=== PATIENT | female | born 1945 | race Caucasian/White ===

== ENCOUNTER → 2020-05-11 13:31 | Outpatient (CLI) | payer MEDICARE, OTHER, SELFPAY ==
[2020-05-11 14:04] LABS: COVID19 -Nasal RAPID Negative (Negative)
== END ==
PROVIDERS: Visit Provider Student in an Organized Health Care Education/Training Program
DX: Z11.59 Encounter for screening for other viral diseases (principal)
CPT/HCPCS: 87635

== ENCOUNTER 2020-05-17 07:50 | Day surgery (SDC) | payer MEDICARE, OTHER, SELFPAY ==
[2020-05-17 08:31] LABS: COVID19 -Nasal RAPID Negative (Negative)
[2020-05-17 08:34] VITALS: BP 113/63; PULSE 60; RESP 14; TEMP 36.9; O2SAT 97; BMI 20.4
[2020-05-17] MEDS: PROPARACAINE 0.5% OPHTH SOL 2 DROPS EYE-OP (08:44)
[2020-05-17] MEDS: CATARACT EYE COMPOUND (10 DROPS/SYRINGE) 3 DROPS EYE-OP (08:47)
--- NOTE | 2020-05-17 09:33 | PM.PREOP ---
Pre-operative Note Interval Note History & Physical reviewed/Exam performed by Physician: Yes Changes to H&P: No
--- NOTE | 2020-05-17 09:34 | PM.OP.1 ---
Operative Date/Time/Diagnoses Pre-op diagnosis: Nuclear Cataract Left eye Post-op diagnosis: same Procedure & Clinicians Same procedure as scheduled: Yes Surgeon: Vj Carrasquillo Anesthesia Type: MAC +/- and Sedation Operative Notes Procedure in detail: Patient brought to the operating suite. Tetracaine drops placed in the left eye. Patient was prepped and draped in sterile manner. Wire lid speculum was placed in the eye. Betadine drops were placed on the eye. This was irrigated. Lidocaine jelly was placed on the eye. A paracentesis port was created with a side-port blade. 0.1 mL 1% preservative free lidocaine was injected into the anterior chamber. The anterior chamber was deepened with viscoelastic. 2.6 mm keratome was used to create a temporal clear corneal incision. Cystotome and Utrata forceps were used to create continuous tear capsulorrhexis. Balanced salt solution was used to hydro dissect the nucleus. The phacoemulsification handpiece was inserted and the nucleus was removed using the stop and chop technique. The iris was floppy and miotic. The irrigation aspiration handpiece was inserted and the remaining cortex was removed. Anterior chamber was deepened with viscoelastic. An Farah ZCB00 intraocular lens with a power of 23.0 was injected into the capsular bag. Irrigation aspiration handpiece was inserted and the remaining viscoelastic was removed. Incision was hydrated with balanced salt solution and found to be leak free with pressure with Weck-Earnestine sponges. 0.1 mL Vigamox injected anterior chamber. 0.3 mL Kenalog 10 mg was injected subconjunctivally. Lid speculum was removed. The patient left the operating room in excellent condition. Complications: none Post-operative Condition: stable Disposition: same day surgery
[2020-05-17] MEDS: PHENYLEPHRINE/LIDOCAINE VIAL (OR) 0.2 ML EYE-OP (09:49)
[2020-05-17] MEDS: MOXIFLOXACIN INJ 5 MG/ML VIAL EYE-OP (09:49)
[2020-05-17] MEDS: TRIAMCINOLONE 50 MG/5 ML VIAL INJ (09:49)
[2020-05-17] MEDS: BALANCED SALT IRRIG SOLN NO.2 500 ML, EPINEPHrine 1 MG IRR (09:50)
[2020-05-17] MEDS: CHONDROIDTIN/SOD HYALURONATE 1.05 ML SYRINGE INTRAOCULA (09:50)
[2020-05-17] MEDS: TETRACAINE 0.5% OPHTH DROPS 4 ML 2 DROPS EYE-OP (09:50)
[2020-05-17] MEDS: LIDOCAINE JELLY 2% 5 ML 1 APPLIC TOP (09:50)
[2020-05-17 10:00] VITALS: BP 123/62; PULSE 60; RESP 14; TEMP 36.6; O2SAT 97
== END 2020-05-17 10:12 | disposition home or self-care (01) ==
PROVIDERS: PCP Family Medicine; Referring Provider Family Medicine; Visit Provider Ophthalmology
PROC: (CPT 66984; principal; 2020-05-17 09:45)
DX: H25.12 Age-related nuclear cataract, left eye (principal); I25.10 Atherosclerotic heart disease of native coronary artery without angina pectoris; I10 Essential (primary) hypertension; E78.5 Hyperlipidemia, unspecified; J45.909 Unspecified asthma, uncomplicated
CPT/HCPCS: 66984; 36415; 87635; J0171; J2250; J3010; J3301

== ENCOUNTER → 2020-07-02 09:47 | Outpatient (CLI) | payer MEDICARE, OTHER, SELFPAY ==
[2020-07-02 10:20] LABS: COVID19 -Nasal RAPID Negative (Negative)
== END ==
PROVIDERS: PCP Family Medicine; Visit Provider Physician Assistant
DX: Z20.822 Contact with and (suspected) exposure to COVID-19 (principal)
CPT/HCPCS: 87635; C9803

== ENCOUNTER 2020-07-05 08:32 | Day surgery (SDC) | payer MEDICARE, OTHER, SELFPAY ==
[2020-07-05] MEDS: PROPARACAINE 0.5% OPHTH SOL 2 DROPS EYE-OP (09:34)
[2020-07-05] MEDS: CATARACT EYE COMPOUND (10 DROPS/SYRINGE) 3 DROPS EYE-OP (09:41)
[2020-07-05 09:42] VITALS: BP 126/71; PULSE 61; RESP 12; TEMP 36.4; O2SAT 99; BMI 19.8
--- NOTE | 2020-07-05 10:20 | PM.PREOP ---
Pre-operative Note Interval Note History & Physical reviewed/Exam performed by Physician: Yes Changes to H&P: No
--- NOTE | 2020-07-05 10:21 | PM.OP.1 ---
Operative Date/Time/Diagnoses Pre-op diagnosis: Nuclear cataract right eye Procedure & Clinicians Procedure: Cataract Surgery Same procedure as scheduled: Yes Surgeon: Vj Carrasquillo Anesthesia Type: MAC +/- and Sedation Operative Notes Procedure in detail: Patient brought to the operating suite. Tetracaine drops placed in the right eye. Patient was prepped and draped in sterile manner. Wire lid speculum was placed in the eye. Betadine drops were placed on the eye. This was irrigated. Lidocaine jelly was placed on the eye. A paracentesis port was created with a side-port blade. 0.1 mL 1% preservative free lidocaine was injected into the anterior chamber. The anterior chamber was deepened with viscoelastic. 2.6 mm keratome was used to create a temporal clear corneal incision. Cystotome and Utrata forceps were used to create continuous tear capsulorrhexis. Balanced salt solution was used to hydro dissect the nucleus. The phacoemulsification handpiece was inserted and the nucleus was removed using the stop and chop technique. The irrigation aspiration handpiece was inserted and the remaining cortex was removed. Anterior chamber was deepened with viscoelastic. An Farah ZCB00 intraocular lens with a power of 22.5 was injected into the capsular bag. Irrigation aspiration handpiece was inserted and the remaining viscoelastic was removed. Incision was hydrated with balanced salt solution and found to be leak free with pressure with Weck-Earnestine sponges. 0.1 mL Vigamox injected anterior chamber. 0.3 mL Kenalog 10 mg was injected subconjunctivally. Lid speculum was removed. The patient left the operating room in excellent condition. Complications: none Post-operative Condition: stable Disposition: same day surgery
[2020-07-05] MEDS: LIDOCAINE JELLY 2% 5 ML 1 APPLIC TOP (10:56)
[2020-07-05] MEDS: MOXIFLOXACIN INJ 5 MG/ML VIAL EYE-OP (10:56)
[2020-07-05] MEDS: CHONDROIDTIN/SOD HYALURONATE 1.05 ML SYRINGE INTRAOCULA (10:56)
[2020-07-05] MEDS: PHENYLEPHRINE/LIDOCAINE VIAL (OR) 0.2 ML EYE-OP (10:57)
[2020-07-05] MEDS: TETRACAINE 0.5% OPHTH DROPS 4 ML 2 DROPS EYE-OP (10:57)
[2020-07-05] MEDS: TRIAMCINOLONE 50 MG/5 ML VIAL INJ (10:57)
[2020-07-05] MEDS: BALANCED SALT IRRIG SOLN NO.2 500 ML, EPINEPHrine 1 MG IRR (10:58)
[2020-07-05 11:17] VITALS: BP 135/83; PULSE 58; RESP 12; TEMP 36.2; O2SAT 98
== END 2020-07-05 11:20 | disposition home or self-care (01) ==
PROVIDERS: PCP Family Medicine; Referring Provider Ophthalmology; Visit Provider Ophthalmology
PROC: (CPT 66984; principal; 2020-07-05 10:15)
DX: H25.11 Age-related nuclear cataract, right eye (principal); J45.909 Unspecified asthma, uncomplicated; Z95.0 Presence of cardiac pacemaker; I51.9 Heart disease, unspecified
CPT/HCPCS: 66984; J0171; J2250; J3301